=== PATIENT | female | born 2000 | race Caucasian/White ===

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

== ENCOUNTER 2020-03-02 18:54 | Emergency (ER) | payer OTHER ==
--- NOTE | 2020-03-02 19:20 | ED Physician Documentation ---
History of Present Illness - Stated complaint Stated Complaint: CHEST PRESSURE - Chief complaint Chief Complaint: Cardiac - History obtained from History obtained from: Patient - History of Present Illness Timing: Prior to arrival, How many days ago (3) Quality: pressure - Additonal information Additional information: 19-year-old female presents to the emergency department with chief complaint of chest pain and pressure that began about 3 days ago. She reports that initially she noticed it only at night when she was supine but over the last 24 hours it has been nearly constant. Pressure does not radiate. She denies any dyspnea. She denies any pleuritic component. Patient seen in the past for similar. She and her mom also report that she was seen at [facility] was young and in her adolescence for chest pain. At that time the work-up was negative. Mom is worried that she could be developing cardiomyopathy. Chest pressure is not exertional. Patient denies taking any hormones. No unilateral leg swelling. No recent surgeries or calf pain. No family history of DVTs or clots. Patient denies pleuritic component. Review of Systems Constitutional: denies: Fever, Chills Cardiac: reports: Chest pain / pressure. denies: Palpitations, Pedal edema, C fpc pain Respiratory: denies: Dyspnea, Cough, Hemoptysis, Wheezing GI: denies: Abdominal Pain, Abdominal Swelling, Nausea, Vomiting, Diarrhea : denies: Dysuria, Frequency, Hesitancy Skin: denies: Rash, Lesions Musculoskeletal: denies: Neck pain, Back pain PD PAST MEDICAL HISTORY - Past Medical History Psych: ADD/ADHD - Past Surgical History Past Surgical History: Yes Ortho: Other - Present Medications Home Medications: Ambulatory Orders Medication Instructions Recorded Confirmed Dextroamphetamine/Amphetamine 20 mg PO DAILY 10/19/17 10/19/17 [Adderall Xr 20 mg Capsule] Ibuprofen [Motrin] 800 mg PO Q8H PRN #30 tablet 10/19/17 Nitrofurantoin Monohyd/M-Cryst 0 10/19/17 [Macrobid 100 mg Capsule] Ondansetron Odt [Zofran Odt] 4 10/19/17 Sulfamethoxazole/Trimethoprim 1 each PO BID 5 Days #10 tablet 10/19/17 [Sulfamethoxazole-Tmp Ds Tablet] Ibuprofen [Ibu] 600 mg PO TID PRN #20 tablet 07/28/20 - Allergies Allergies/Adverse Reactions: Allergies Allergy/AdvReac Type Severity Reaction Status Date / Time No Known Drug Allergies Allergy Verified 10/19/17 10:42 - Social History Does the pt smoke?: No Smoking Status: Never smoker Does the pt drink ETOH?: No Does the pt have substance abuse?: No - Immunizations Immunizations are current?: Yes PD ED PE NORMAL - General General: Alert and oriented X 3, No acute distress, Well developed/nourished - HEENT HEENT: EOMI - Neck Neck: No adenopathy, Thyroid normal - Cardiac Cardiac: RRR, No murmur, No gallop, No rub, Strong equal pulses, Other (cardiac tones asucultated in sitting, formwar dand supine position. 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 Eye Opening: Spontaneous Motor: Obeys Commands Verbal: Oriented GCS Score: 15 - Psych Psych: Normal mood Results - Vitals Vitals: Vital Signs - 24 hr 03/02/20 03/02/20 03/02/20 19:01 19:18 20:35 Temperature 37 C 36.5 C Heart Rate 113 H 100 100 Respiratory 20 23 20 Rate Blood Pressure 125/97 H 125/88 H 120/68 O2 Saturation 100 100 100 Oxygen O2 Source Room air - EKG (time done) 1903 Rate: Rate (enter#) (108) Rhythm: Sinus tachycardia, NSR [place]: Normal Intervals: Normal [place] QRS: Normal Ischemia: Normal ST segments Compare to prior EKG: Unchanged from prior EKG Computer interpretation: Agree with computer (unchanged with exception for mild tachycardia from previous) - Labs Labs: Laboratory Tests 03/02/20 03/02/20 03/02/20 19:18 19:18 19:18 WBC 7.1 RBC 4.27 Hgb 12.4 Hct 38.6 MCV 90.4 MCH 29.0 MCHC 32.1 RDW 12.3 Plt Count 242 MPV 10.3 Neut # (Auto) 3.2 Lymph # (Auto) 2.8 [place] # (Auto) 0.7 Eos # (Auto) 0.3 Baso # (Auto) 0.1 Absolute Nucleated RBC 0.00 Nucleated RBC % 0.0 Sodium 140 Potassium 3.2 L Chloride 100 L Carbon Dioxide 27 Anion Gap 13.0 BUN 9 Creatinine 0.7 Estimated GFR (MDRD) 108 Glucose 107 H Calcium 9.8 Total Bilirubin 0.3 AST 19 ALT 14 Alkaline Phosphatase 76 Troponin I High Sens < 2.3 L Total Protein 7.6 Albumin 4.4 Globulin 3.2 Albumin/Globulin Ratio 1.4 Lipase 27 Urine Color Urine Clarity Urine pH Ur Specific [place] Urine Protein Urine Glucose (UA) Urine Ketones Urine Occult Blood Urine Nitrite Urine Bilirubin Urine Urobilinogen Ur Leukocyte Esterase Urine RBC Urine WBC Ur Squamous Epith Cells Urine Bacteria Ur Microscopic Review Urine Culture Comments 03/02/20 19:42 WBC RBC Hgb Hct MCV MCH MCHC RDW Plt Count MPV Neut # (Auto) Lymph # (Auto) [place] # (Auto) Eos # (Auto) Baso # (Auto) Absolute Nucleated RBC Nucleated RBC % Sodium Potassium Chloride Carbon Dioxide Anion Gap BUN Creatinine Estimated GFR (MDRD) Glucose Calcium Total Bilirubin AST ALT Alkaline Phosphatase Troponin I High Sens Total Protein Albumin Globulin Albumin/Globulin Ratio Lipase Urine Color YELLOW Urine Clarity CLEAR Urine pH 6.5 Ur Specific [place] 1.010 Urine Protein NEGATIVE Urine Glucose (UA) NEGATIVE Urine Ketones NEGATIVE Urine Occult Blood NEGATIVE Urine Nitrite NEGATIVE Urine Bilirubin NEGATIVE Urine Urobilinogen 0.2 (NORMAL) Ur Leukocyte Esterase TRACE H Urine RBC 0-5 Urine WBC 11-25 H Ur Squamous Epith Cells FEW Squamous Urine Bacteria Many H Ur Microscopic Review INDICATED Urine Culture Comments INDICATED - Rads (name of study) cxr Radiology: Final report received (No acute cardiopulmonary process) PD MEDICAL DECISION MAKING - ED course Complexity details: reviewed old records, reviewed results, re-evaluated patient, d/w patient, d/w family ED course: 19-year-old female presents emergency department with 3 days of chest pain and pressure. She has been seen for similar in the past - Cannot PERC negative given mild tachycardia of 108. However her Wells score is negative, no hypoxia or peluritic chest pain. Defer d-dimer. - EKG non ishcemic. negative high sensitivity troponin despite many days of pain - CXR without focal opacity. - pt's chest pain is slightly reproducible. however no acute findings for chest pain seen on labs or exam today. Recommend close f/u with pcp and emergent return precautions discussed Departure - Departure Disposition: Home, Self Care Clinical Impression: Chest pain Qualifiers: Chest pain type: unspecified Qualified Code(s): R07.9 - Chest pain, unspecified Condition: Stable Instructions: ED Chest Pain NonCardiac Follow-Up: ADITI ANDERSON ARNP [Primary Care Provider] - Prescriptions: Ibuprofen [Ibu] 600 mg PO TID PRN #20 tablet PRN Reason: Pain Comments: Your labs today are essentially normal. Your chest x-ray is normal. Your EKG is essentially normal. You should follow-up this ED visit with your primary care doctor. I have prescribed ibuprofen to help with your pain at home. If you develop difficulty breathing have leg swelling or have suddenly severe or different chest pain present again to the emergency department Discharge Date/Time: 03/02/20 20:35
[2020-03-02 19:24] LABS: BASOPHILS # (AUTO) 0.1 10^3/uL (0.0-0.1); BASOPHILS % (AUTO) 0.7 %; EOSINOPHILS # (AUTO) 0.3 10^3/uL (0.0-0.7); EOSINOPHILS % (AUTO) 4.6 %; HGB - HEMOGLOBIN 12.4 g/dL (12.0-16.0); LYMPHOCYTES # (AUTO) 2.8 10^3/uL (1.5-3.5); LYMPHOCYTES % (AUTO) 39.6 %; MEAN CORPUSCULAR HGB CONC 32.1 g/dL (32.0-36.0); MEAN CORPUSCULAR VOLUME 90.4 fL (81.0-99.0); MEAN PLATELET VOLUME 10.3 fL (7.9-10.8); MONOCYTES # (AUTO) 0.7 10^3/uL (0.0-1.0); MONOCYTES % (AUTO) 9.8 %; NEUTROPHILS # (AUTO) 3.2 10^3/uL (1.5-6.6); PLT - PLATELET COUNT 242 10^3/uL (130-450); RED BLOOD COUNT 4.27 10^6/uL (4.20-5.40); RED CELL DISTRIBUTION WIDTH 12.3 % (12.0-15.0); WHITE BLOOD COUNT 7.1 x10^3/uL (4.8-10.8)
[2020-03-02 19:41] LABS: ALBUMIN 4.4 g/dL (3.2-5.5); ALBUMIN/GLOBULIN RATIO 1.4 (1.0-2.2); BILIRUBIN,TOTAL 0.3 mg/dL (0.2-1.0); CALCIUM 9.8 mg/dL (8.5-10.3); CREATININE 0.7 mg/dL (0.4-1.0); TOTAL PROTEIN 7.6 g/dL (6.7-8.2)
[2020-03-02] MEDS ORDERED: POTASSIUM CHLORIDE 20 MEQ TABLET PO STA (19:45)
[2020-03-02 19:52] LABS: BILIRUBIN,URINE NEGATIVE (NEGATIVE); GLUCOSE, URINE (UA) NEGATIVE (NEGATIVE); KETONES,URINE (UA) NEGATIVE (NEGATIVE); LEUKOCYTE ESTERASE, URINE TRACE (NEGATIVE); NITRITE,URINE NEGATIVE (NEGATIVE); OCCULT BLOOD,URINE NEGATIVE (NEGATIVE); PH,URINE 6.5 PH (5.0-7.5); PROTEIN,URINE NEGATIVE (NEGATIVE); UROBILINOGEN,URINE 0.2 (NORMAL) E.U./dL (NORMAL)
[2020-03-02 20:00] LABS: CLARITY,URINE CLEAR (CLEAR)
[2020-03-02 20:06] LABS: BACTERIA,URINE Many /HPF (None Seen); RBC,URINE 0-5 /HPF (0-5); SQUAMOUS EPITHELIAL CELL,UR FEW Squamous (<= Few)
--- NOTE | 2020-03-02 20:15 | XRAY Report ---
PROCEDURE: Chest 1 View X-Ray INDICATIONS: chest pain TECHNIQUE: One view of the chest was acquired. COMPARISON: 10/19/2017 2 view chest. FINDINGS: Surgical changes and devices: None. Lungs and pleura: No pleural effusions or pneumothorax. Lungs are clear. Mediastinum: Mediastinal contours appear normal. Heart size is normal. Bones and chest wall: No suspicious bony lesions. Overlying soft tissues appear unremarkable. IMPRESSION: Normal for age, source of current symptoms is not found. Reviewed by: Nick Castillo MD on 03/02/2020 8:14 PM PDT Approved by: Nick Castillo MD on 03/02/2020 8:14 PM PDT Station ID: [id number]
[2020-03-02 20:38] VITALS: BP 120/68
[2020-03-02 20:50] LABS: HCG UR QUAL NEGATIVE
== END 2020-03-02 20:35 | disposition home or self-care (01) ==
LOC: ED 18:54
DX: R07.89 Other chest pain (principal); R00.0 Tachycardia, unspecified
CPT/HCPCS: 36415; 71045; 80053; 81001; 81025; 83690; 84484; 85025; 87086; 93005; 99282; 99283; A9270; 81003; 87181

== ENCOUNTER 2021-01-14 18:05 | Emergency (ER) | payer OTHER ==
[2021-01-14 18:31] LABS: BILIRUBIN,URINE NEGATIVE (NEGATIVE); GLUCOSE, URINE (UA) NEGATIVE (NEGATIVE); KETONES,URINE (UA) NEGATIVE (NEGATIVE); LEUKOCYTE ESTERASE, URINE NEGATIVE (NEGATIVE); NITRITE,URINE NEGATIVE (NEGATIVE); OCCULT BLOOD,URINE NEGATIVE (NEGATIVE); PROTEIN,URINE NEGATIVE (NEGATIVE); UROBILINOGEN,URINE 0.2 (NORMAL) E.U./dL (NORMAL)
[2021-01-14 18:32] LABS: CLARITY,URINE CLEAR (CLEAR)
[2021-01-14 18:33] LABS: BASOPHILS % (AUTO) 0.5 %; EOSINOPHILS # (AUTO) 0.2 10^3/uL (0.0-0.7); EOSINOPHILS % (AUTO) 2.9 %; HCT - HEMATOCRIT 36.7 % (37.0-47.0); HGB - HEMOGLOBIN 11.9 g/dL (12.0-16.0); LYMPHOCYTES # (AUTO) 2.3 10^3/uL (1.5-3.5); LYMPHOCYTES % (AUTO) 39.3 %; MEAN CORPUSCULAR HEMOGLOBIN 30.2 pg (27.0-31.0); MEAN CORPUSCULAR HGB CONC 32.4 g/dL (32.0-36.0); MEAN CORPUSCULAR VOLUME 93.1 fL (81.0-99.0); MEAN PLATELET VOLUME 10.6 fL (7.9-10.8); MONOCYTES # (AUTO) 0.7 10^3/uL (0.0-1.0); MONOCYTES % (AUTO) 11.8 %; NEUTROPHILS # (AUTO) 2.7 10^3/uL (1.5-6.6); NEUTROPHILS % (AUTO) 45.3 %; PLT - PLATELET COUNT 213 10^3/uL (130-450); RED BLOOD COUNT 3.94 10^6/uL (4.20-5.40); RED CELL DISTRIBUTION WIDTH 11.9 % (12.0-15.0); WHITE BLOOD COUNT 5.9 x10^3/uL (4.8-10.8)
[2021-01-14 18:34] LABS: HCG UR QUAL NEGATIVE
[2021-01-14 18:44] LABS: ALBUMIN 4.1 g/dL (3.2-5.5); ALBUMIN/GLOBULIN RATIO 1.2 (1.0-2.2); BILIRUBIN,TOTAL 0.4 mg/dL (0.2-1.0); CALCIUM 9.3 mg/dL (8.5-10.3); CREATININE 0.5 mg/dL (0.4-1.0); POTASSIUM 3.9 mmol/L (3.5-5.0); TOTAL PROTEIN 7.5 g/dL (6.7-8.2)
--- OUTSIDE RECORDS SUMMARY | 2021-01-14 18:48 | EXTERNAL MEDICAL SUMMARY RPT | Continuity of Care Document ---
:2000 Demographics Phone Unavailable Preferred Language Unknown Marital Status Unknown Worship Affiliation Unknown Race Unknown Ethnic Group Unknown Author Organization [facility] Address [address] [place] [address] Phone Allergies Encounters Medications Problems Results
[2021-01-14] MEDS ORDERED: KETOROLAC 60 MG/2 ML VIAL IM STA (19:06)
--- NOTE | 2021-01-14 19:08 | ED Physician Documentation ---
History of Present Illness - Stated complaint Stated Complaint: BACK PX - Chief complaint Chief Complaint: Abd Pain - Additonal information Additional information: 20-year-old female presents emergency department for evaluation of 2 days of r ight low back pain. Denies any inciting events or trauma. She reports she is only ever had pain like this when she had a urinary tract infection or even a kidney infection but she was much younger. She denies dysuria urgency or frequency. No fevers or vomiting. No diarrhea. She denies anterior abdominal pain. She has took in a limited amount of ibuprofen that worked mildly for relief of symptoms. Review of Systems Constitutional: denies: Fever, Chills Eyes: reports: Reviewed and negative Ears: reports: Reviewed and negative Throat: reports: Reviewed and negative Cardiac: reports: Reviewed and negative Respiratory: reports: Reviewed and negative GI: denies: Abdominal Pain, Nausea, Vomiting : denies: Dysuria, Frequency, Hesitancy Skin: denies: Rash, Abrasion (s) Musculoskeletal: reports: Back pain. denies: Neck pain Neurologic: denies: Generalized weakness, Focal weakness Psychiatric: denies: Depressed, Suicidal, Homicidal Endocrine: denies: Polydypsia, Polyuria PD PAST MEDICAL HISTORY - Past Medical History Psych: ADD/ADHD - Past Surgical History Past Surgical History: Yes Ortho: Other - Present Medications Home Medications: Ambulatory Orders Medication Instructions Recorded Confirmed Dextroamphetamine/Amphetamine 20 mg PO DAILY 10/19/17 01/14/21 [Adderall Xr 20 mg Capsule] Ibuprofen [Motrin] 600 mg PO Q6H PRN #30 tab 01/14/21 methocarbamoL [Methocarbamol] 750 mg PO BID PRN #30 tablet 01/14/21 - Allergies Allergies/Adverse Reactions: Allergies Allergy/AdvReac Type Severity Reaction Status Date / Time No Known Drug Allergies Allergy Verified 01/14/21 18:07 - Social History Does the pt smoke?: No Smoking Status: Never smoker Does the pt drink ETOH?: No Does the pt have substance abuse?: No - Immunizations Immunizations are current?: Yes PD ED PE EXPANDED - General General: Alert, Well developed/nourished - Cardiac Cardiac: Regular Rate, Radial strong equal, Pedal strong equal, Cap refill < 2 sec. No: Murmur Present - Respiratory Respiratory: Clear to ausultation ramon. No: Distress, Labored - Abdomen Abdomen: Normal Bowel sounds, Other (No tenderness elicited of bilateral flank or CVA). No: Tender to palpation - Back Back: Soft tissue tenderness (Mild soft tissue tenderness of the right lower paraspinous muscles without findings of ecchymosis swelling or erythema). No: Vertebral tenderness, Straight leg raise + R, Straight leg raise + L, CVA TTP right, CVA TTP left - Derm Derm: Normal color, Warm and dry - Extremities Extremities: Normal. No: Deformity, Tenderness Results - Vitals Vitals: Vital Signs - 24 hr 01/14/21 18:09 Temperature 36.2 C L Heart Rate 80 Respiratory 19 Rate Blood Pressure 117/68 O2 Saturation 100 Oxygen O2 Source Room air - Labs Labs: Laboratory Tests 01/14/21 01/14/21 01/14/21 18:22 18:28 18:28 WBC 5.9 RBC 3.94 L Hgb 11.9 L Hct 36.7 L MCV 93.1 MCH 30.2 MCHC 32.4 RDW 11.9 L Plt Count 213 MPV 10.6 Neut # (Auto) 2.7 Lymph # (Auto) 2.3 [place] # (Auto) 0.7 Eos # (Auto) 0.2 Baso # (Auto) 0.0 Absolute Nucleated RBC 0.00 Nucleated RBC % 0.0 Sodium 139 Potassium 3.9 Chloride 102 Carbon Dioxide 27 Anion Gap 10.0 BUN 12 Creatinine 0.5 Estimated GFR (MDRD) 157 Glucose 115 H Calcium 9.3 Total Bilirubin 0.4 AST 18 ALT 17 Alkaline Phosphatase 69 Total Protein 7.5 Albumin 4.1 Globulin 3.4 Albumin/Globulin Ratio 1.2 Urine Color YELLOW Urine Clarity CLEAR Urine pH 7.0 Ur Specific [place] 1.010 Urine Protein NEGATIVE Urine Glucose (UA) NEGATIVE Urine Ketones NEGATIVE Urine Occult Blood NEGATIVE Urine Nitrite NEGATIVE Urine Bilirubin NEGATIVE Urine Urobilinogen 0.2 (NORMAL) Ur Leukocyte Esterase NEGATIVE Ur Microscopic Review NOT INDICATED Urine Culture Comments NOT INDICATED Urine HCG, Qual NEGATIVE PD MEDICAL DECISION MAKING - ED course Complexity details: reviewed results, re-evaluated patient, d/w patient, d/w family ED course: This is a very well-appearing 20-year-old female that presents emergency department for due to 2 days of acute right low back pain. She reports she has only ever had this pain when she had a urinary tract infection or a sending cystitis. Screening labs today showed no acute worrisome abnormalities. Clearly there was no urinary tract infection. Patient was initially given Toradol here in the emergency department with mild to moderate relief of her symptoms. I was unable to elicit any anterior abdominal tenderness. However patient did not feel that her symptoms were due to back strain. I did offer a CAT scan of the abdomen which was ordered. The nursing staff ultimately had difficult time establishing IV access. Therefore the patient then declined a CT of the abdomen. She would like to try NSAID medication as well as a muscle relaxer at home. If her symptoms are not markedly better over the next 48 to 72 hours she will return to the ER for a second look. Departure - Departure Disposition: Home, Self Care Clinical Impression: Right low back pain Qualifiers: Chronicity: acute Sciatica presence: without sciatica Qualified Code(s): M54.5 - Low back pain Condition: Stable Record reviewed to determine appropriate education?: Yes Follow-Up: ADITI ANDERSON ARNP [Primary Care Provider] - Prescriptions: methocarbamoL [Methocarbamol] 750 mg PO BID PRN #30 tablet PRN Reason: Spasms Ibuprofen [Motrin] 600 mg PO Q6H PRN #30 tab PRN Reason: Pain Comments: Amy you were seen in the ER today for 2 days of right sided low back pain. You were concerned that this could be a urinary tract infection. As we discussed your labs were essentially normal today. You do not have findings of a urinary tract infection. I did offer a CAT scan however after time in the emergency department he no longer wanted to pursue this. I do however suspect that the cause of this pain is likely muscle strain. Let us have you take the ibuprofen with food 3 times a day. A muscle relaxer may also help improve your symptoms. Please be cautious using this it may make you a little dizzy or unsafe to drive. With simple muscle strain I would expect your pain and symptoms to be getting better over the next 48 to 72 hours. If not or worsening before then please return immediately to the ER for a second look.
[2021-01-14] MEDS ORDERED: IOVERSOL 320 100 ML VIAL IVP ONE (19:41)
[2021-01-14 21:06] VITALS: BP 115/77
== END 2021-01-14 21:15 | disposition home or self-care (01) ==
LOC: ED 18:05
DX: M54.5 Low back pain (principal)
CPT/HCPCS: 36415; 80053; 81001; 81003; 81025; 85025; 87086; 96372; 99284

== ENCOUNTER 2021-08-19 08:00 | Outpatient (CLI) | payer OTHER | END 2021-08-19 23:59 | disposition home or self-care (01) | LOC: LAB.N 08:00 | PROVIDERS: ATTEND Physician Assistant | DX: U07.1 COVID-19 (principal) ==